=== PATIENT | male | born 1940 | race Caucasian/White ===

== ENCOUNTER → 2024-01-10 08:11 | Outpatient (REF) | payer BC, SELFPAY | LOC: HWRCS 08:11 | PROVIDERS: ATTENDING PHYSICIAN Internal Medicine Cardiovascular Disease; FAMILY PHYSICIAN Physician Assistant Medical | DX: R01.1 Cardiac murmur, unspecified (principal) | CPT/HCPCS: 93306 ==

== ENCOUNTER → 2024-02-17 09:14 | Outpatient (REF) | payer BC, SELFPAY | LOC: HWRAD 09:14 | PROVIDERS: ATTENDING PHYSICIAN Physician Assistant Medical | DX: M25.562 Pain in left knee (principal); M25.552 Pain in left hip; M54.32 Sciatica, left side | CPT/HCPCS: 72110; 73502; 73564 ==

== ENCOUNTER → 2024-08-07 06:33 | Outpatient (REF) | payer BC, SELFPAY | LOC: MRI 06:33 | PROVIDERS: ATTENDING PHYSICIAN Physician Assistant Medical | DX: M54.16 Radiculopathy, lumbar region (principal) | CPT/HCPCS: 72148 ==